=== PATIENT | female | born 1990 | race Hispanic/Latino ===

== ENCOUNTER 2016-11-20 16:03 | Emergency (ER) | payer OTHER ==
[~2016-11-20] VITALS: Ht 160 cm; Wt 88.0 kg
[~2016-11-20 16:03] MED LIST: ACID REFLUX; AMOXICILLIN500 M1 PO; AUGMENTIN875 MG PO; BENTYL10 MG PO; Motrin PO; NAPROSYN500 MG PO; NO MEDS; NOHOMEMEDS; PEPCID20 MG PO; Percocet 5/325,Endoc PO; Prefera-OB Plus DHA PO; Slow Fe PO; ULTRAM50 MG PO; VIBRAMYCIN100 MG PO; ZOFRAN ODT4 MG PO; ZOFRAN4 MG PO
[2016-11-20 16:49] LABS: MCH 25.8 PG (29.0-34.0); MCHC 33.1 G/DL (30.0-36.0); MEAN PLAT.VOLUME 11.9 uM^3 (9.5-12.4); PLATELET COUNT 290 K/uL (156-360); RBC DIS.WIDTH-CV 14.9 % (11.8-14.6); RBC DIS.WIDTH-SD 40.8 % (39-53)
[2016-11-20 17:00] LABS: CHLORIDE 106 mEq/L (99-109); SODIUM 138 mEq/L (136-147)
[2016-11-20 17:02] LABS: GLUCOSE 71 mg/dL (70-99)
[2016-11-20 17:03] LABS: ANION GAP 11 MEQ/L (2-14)
[2016-11-20 17:04] LABS: TOTAL BILIRUBIN 0.3 mg/dL (0.0-1.0)
[2016-11-20 17:06] LABS: ALKALINE PHOSPHATASE 82 IU/L (3-129); GFR ESTIMATE (CALCULATED) > 59 mL/min/
[2016-11-20 17:07] LABS: UREA NITROGEN (BUN) 17 mg/dL (9-23)
[2016-11-20 17:13] LABS: ADD MIUA? YES; BILIRUBIN NEGATIVE; BLOOD NEGATIVE; COLOR YELLOW ((YELLOW)); GLUCOSE (STRIP) NEGATIVE; KETONES NEGATIVE; LEUKOCYTES SMALL; NITRITE NEGATIVE; PH, URINE 7.5 (5-8); PROTEIN (STRIP) NEGATIVE; SPECIFIC GRAVITY 1.026 (1.000-1.030); UROBILINOGEN 0.2 MG/DL (0.2-1.0)
[2016-11-20 17:15] LABS: QUANTITATIVE HCG < 4.0 MIU/ML
[2016-11-20 17:38] LABS: PATHOLOGICAL CAST NONE SEEN; SMALL ROUND CELL NONE SEEN; YEAST-LIKE CELL NONE SEEN
[2016-11-20 18:13] LABS: EPITHELIAL CELLS RARE; RED BLOOD CELLS NONE SEEN /HPF (0-5); WHITE BLOOD CELLS RARE /HPF (0-5)
[2016-11-20 18:14] LABS: BACTERIA RARE; CASTS NONE SEEN /LPF; CRYSTALS NONE SEEN; MUCUS 2+; UCUL ADDED? NO
[2016-11-20] MEDS ORDERED: NAPROXEN500 MG PO (18:40)
[2016-11-20 18:59] VITALS: BP 115/81
== END 2016-11-20 19:00 | disposition home or self-care (01) ==
LOC: EME 16:03
DX: M54.30 Sciatica, unspecified side (principal); Z88.1 Allergy status to other antibiotic agents
CPT/HCPCS: 80053; 81003; 84702; 85027; 99281; 99283

== ENCOUNTER 2018-06-17 13:15 | Emergency (ER) | payer OTHER ==
[~2018-06-17] VITALS: Ht 160 cm; Wt 87.9 kg
[~2018-06-17 13:15] MED LIST changes: +NAPROXEN500 MG PO
[2018-06-17] MEDS ORDERED: MOTRIN800 MG PO (15:13)
[2018-06-17 15:33] VITALS: BP 118/83
== END 2018-06-17 15:33 | disposition home or self-care (01) ==
LOC: EME 13:15
DX: S93.401A Sprain of unspecified ligament of right ankle, initial encounter (principal); X50.1XXA Overexertion from prolonged static or awkward postures, initial encounter; Y92.008 Other place in unspecified non-institutional (private) residence as the place of occurrence of the external cause; Z88.1 Allergy status to other antibiotic agents
CPT/HCPCS: 73630; 99281; 99283; L4350